=== PATIENT | male | born 1965 | race Caucasian/White ===

== ENCOUNTER 2021-09-07 06:41 | Emergency (ER) | payer MEDICAID, SELFPAY ==
--- NOTE | ~2021-09-07 | XR_ITS ---
EXAMINATION: XR CHEST CLINICAL INFORMATION: Back pain COMPARISON: None TECHNIQUE: 2 views of the chest were obtained. FINDINGS: The lungs are inflated but clear of acute pneumonic process. The heart size and pulmonary vascularity is normal. No gross bony abnormality seen. XR/XR chest 2V IMPRESSION: Hyperinflated lungs without acute process.
--- NOTE | ~2021-09-07 | CT_ITS ---
EXAMINATION: CT CHEST WITHOUT CONTRAST CLINICAL INFORMATION: Chest wall pain COMPARISON: Previous chest x-ray from earlier the same day TECHNIQUE: Multidetector volumetric CT imaging of the chest was done. Axial MIP volume rendering provided. Sagittal and coronal reformatted images were obtained. This CT examination was performed using dose optimization techniques as appropriate, variously including the following: *Automated exposure control *Adjustment of mA and/or kV according to patient size (this includes techniques or standardized protocols for targeted exams where dose is matched to indication/reason for exam; i.e. 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 MEDIASTINUM: The heart does not appear enlarged. The thoracic aorta is upper normal in size. There is mild aortic valve calcification. The mediastinum is otherwise normal. PLEURA: There is no pleural effusion. No pleural mass or thickening. AXILLA: No lymphadenopathy. No chest wall mass is seen. UPPER ABDOMEN: There are small right renal stones. OSSEOUS STRUCTURES: There are degenerative changes of the spine. No fracture or bone lesion is seen. CT/CT chest wo con IMPRESSION: Upper normal-size thoracic aorta. Right renal stones. Degenerative changes of the thoracic spine. Fleischner guidelines were followed.
[2021-09-07 06:43] VITALS: BP 114/93; PULSE 88; RESP 20; TEMP 36.4; O2SAT 100; BMI 25.6
--- NOTE | 2021-09-07 07:33 | ECG_ITS ---
Test Reason : rib pain Blood Pressure : / mmHG Vent. Rate : 076 BPM Atrial Rate : 076 BPM P-R Int : 188 ms QRS Dur : 090 ms QT Int : 356 ms P-R-T Axes : 059 052 067 degrees QTc Int : 400 ms Normal sinus rhythm Normal ECG When compared with ECG of 06-DEC-2003 14:59, No significant change was found Referred By: Mookie Osuna Electronically Signed By:SADA BISHOP
--- NOTE | 2021-09-07 07:45 | ED_ITS ---
HPI - General Adult General Chief complaint: Back Pain/Injury Stated complaint: back pain Time Seen by Provider: 09/07/21 07:20 Source: patient Mode of arrival: ambulatory Limitations: no limitations History of Present Illness HPI narrative: This is a 55 years old patient presented to the emergency department with a chief complaint of left upper back pain pleuritic in nature, patient states that he was seen at the urgent care L chest x-ray showed a calcification Onset (ago): month(s) (2) Location: chest Radiation: non-radiation Severity: moderate Pain Consistency: constant Relieving factors: none Exacerbating factors: none Related Data Previous Rx's Medication Instructions Recorded oxycodone 5 mg tablet 5 mg PO BID PRN #12 tab 09/07/21 Allergies Allergy/AdvReac Type Severity Reaction Status Date / Time No Known Allergies Allergy Unverified 09/07/21 06:47 Review of Systems Constitutional: Constitutional: Reports no additional constitutional complaints Eyes: Eyes: Reports no additional eye complaints ENT: Reports system reviewed and no additional complaints, except as documented Cardiovascular: Cardiovascular: Reports no additional cardiovascular complaints Neurologic: Reports system reviewed and no additional complaints, except as documented PMFSH Past Medical History Attestation statement: The following information was validated with the patient. Medical History No known health problems Physical Exam Vital Signs: Vital Signs: Last Vital Signs Temp 97.5 F 09/07/21 06:43 Pulse 88 09/07/21 06:43 Resp 20 09/07/21 06:43 BP 114/93 H 09/07/21 06:43 Pulse Ox 100 09/07/21 06:43 BMI result Body Mass Index 25.6 His vital signs are stable he looks not toxic his O2 sat is 100% Const: General: cooperative, comfortable and no acute distress Nutritional Appearance: average body habitus and well nourished Orientation/consciou sness: patient oriented x3 HENMT: Head: Yes normal to inspection, Yes No palpable skull fracture present and Yes normocephalic Ears: hearing grossly normal bilaterally General nose exam: Normal external nose present Mouth: Normal oral and palatal mucosa present Neck: Neck: Yes normal visual inspection and Yes full ROM Lymphatic: no lymphadenopathy noted Chest: Chest palpation & inspection: normal inspection of the chest Resp: Effort & Inspection: normal respiratory effort and able to speak in complete sentences Auscultation: clear to auscultation bilaterally Percussion: percussion normal Cardio: Jugular venous distension: no JVD Rate: regular rate Rhythm: regular rhythm GI: Inspection: Yes normal to inspection Palpation (GI): Soft to palpation, not firm and nontender Auscultation: normal bowel sounds Skin: General skin exam: no rashes or lesions noted Lesions: no lesions Rashes: no rashes Neuro: General: patient oriented x3 Course Reevaluation(s) Reevaluation #1: Workup negative is chest x-ray is normal, labs and normal, D-dimer is negative. I explained to the patient at the the workup is negative the patient is not satisfied. He is requesting a CT scan he states that he was supposed of get a CT scan of the by the primary care physician , he became very upset because I did not order a CT scan,he was told that he has a calcification that may be cancer. Reevaluation #2: CT CHEST NO LUNG DISEASE,THORACIC AORTA UPPER LIMIT,BUT I DO NOT THINK HE HAS DISSECTION PAIN ONGOING 2 MONTHS AT LEAST,D-DIMER NEGATIVE ,BP OK Medical Decision Making Lab Data Result diagrams: 09/07/21 07:50 09/07/21 07:50 Labs: Lab Results 09/07/21 09/07/21 09/07/21 Range/Units 07:50 07:50 07:50 WBC 6.2 (4.8-10.8) X10*3/uL RBC 5.17 (4.60-5.80) X10*6/uL Hgb 15.9 (14.0-18.0) g/dl Hct 47.1 (42.0-52.0) % MCV 91.1 (80.0-98.0) fL MCH 30.8 (27.0-33.0) pg MCHC 33.8 (31.0-36.0) g/dl RDW 12.3 (11.0-16.0) % Plt Count 344 (160-400) X10*3/uL MPV 8.5 L (9.4-12.4) fL Immature Gran % (Auto) 0.3 (0.0-0.4) % Neut % (Auto) 63.3 (45-73) % Lymph % (Auto) 22.2 (20-40) % [place] % (Auto) 10.4 (2-11) % Eos % (Auto) 3.2 (0-4) % Baso % (Auto) 0.6 (0-2) % Lymph # (Auto) 1.4 (1.2-4.9) X10*3/uL [place] # (Auto) 0.6 (0.1-1.2) X10*3/uL Eos # (Auto) 0.2 (0.0-0.4) X10*3/uL Baso # (Auto) 0.0 (0.0-0.2) X10*3/uL Abs Immat Gran (auto) 0.02 (0.00-0.03) X10*3/uL Absolute Neuts (auto) 3.9 (2.0-8.3) x10*3/uL Absolute Nucleated RBC 0.000 (0.0-0.012) X10*3/uL Nucleated RBC % (auto) 0.0 (0.0-0.2) /100WBC D-Dimer High Sensitivty < 150 NG/ML Sodium 138 (135-145) mmol/L Potassium 5.0 (3.3-5.1) mmol/L Chloride 105 (96-108) mmol/L Carbon Dioxide 28 (22-29) mmol/L Anion Gap 10 L (12-20) BUN 13 (9-16) mg/dL Creatinine 1.11 (0.5-1.4) mg/dL Estim Creat Clear Calc 87.7 Estimated GFR > 60 Random Glucose 112 (60-115) mg/dL Calcium 9.6 (8.4-10.2) mg/dL Troponin I High Sens (<3.5-35.0) ng/L 09/07/21 Range/Units 07:50 WBC (4.8-10.8) X10*3/uL RBC (4.60-5.80) X10*6/uL Hgb (14.0-18.0) g/dl Hct (42.0-52.0) % MCV (80.0-98.0) fL MCH (27.0-33.0) pg MCHC (31.0-36.0) g/dl RDW (11.0-16.0) % Plt Count (160-400) X10*3/uL MPV (9.4-12.4) fL Immature Gran % (Auto) (0.0-0.4) % Neut % (Auto) (45-73) % Lymph % (Auto) (20-40) % [place] % (Auto) (2-11) % Eos % (Auto) (0-4) % Baso % (Auto) (0-2) % Lymph # (Auto) (1.2-4.9) X10*3/uL [place] # (Auto) (0.1-1.2) X10*3/uL Eos # (Auto) (0.0-0.4) X10*3/uL Baso # (Auto) (0.0-0.2) X10*3/uL Abs Immat Gran (auto) (0.00-0.03) X10*3/uL Absolute Neuts (auto) (2.0-8.3) x10*3/uL Absolute Nucleated RBC (0.0-0.012) X10*3/uL Nucleated RBC % (auto) (0.0-0.2) /100WBC D-Dimer High Sensitivty NG/ML Sodium (135-145) mmol/L Potassium (3.3-5.1) mmol/L Chloride (96-108) mmol/L Carbon Dioxide (22-29) mmol/L Anion Gap (12-20) BUN (9-16) mg/dL Creatinine (0.5-1.4) mg/dL Estim Creat Clear Calc Estimated GFR Random Glucose (60-115) mg/dL Calcium (8.4-10.2) mg/dL Troponin I High Sens < 3.5 (<3.5-35.0) ng/L Imaging Data Chest x-ray: Radiologist's impression: EXAMINATION: XR CHEST CLINICAL INFORMATION: Back pain COMPARISON: None TECHNIQUE: 2 views of the chest were obtained. FINDINGS: The lungs are inflated but clear of acute pneumonic process. The heart size and pulmonary vascularity is normal. No gross bony abnormality seen. XR/XR chest 2V IMPRESSION: Hyperinflated lungs without acute process. 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 ? MEDIASTINUM: The heart does not appear enlarged. The thoracic aorta is upper normal in size. There is mild aortic valve calcification. The mediastinum is otherwise normal.? PLEURA: There is no pleural effusion. No pleural mass or thickening.? AXILLA: No lymphadenopathy. No chest wall mass is seen. UPPER ABDOMEN: There are small right renal stones. OSSEOUS STRUCTURES: There are degenerative changes of the spine. No fracture or bone lesion is seen. CT/CT chest wo con IMPRESSION: Upper normal-size thoracic aorta. Right renal stones. Degenerative changes of the thoracic spine. ? Fleischner guidelines were followed. Dictated By: ECG Data Prior ECG tracings: available for review Interpretation: NSR 76 no ischemic changes Discharge Plan Discharge Clinical Impression: Back pain Patient Disposition: Home, Self-Care Instructions: Back Pain (ED) Additional Instructions: Please follow-up with primary care physician, Your CT scan shows no lung disease, thoracic aorta is upper limit normal,make sure you follow up with Primary care doctor and regional liaison Dr Ritter Prescriptions: New oxycodone 5 mg tablet 5 mg PO BID PRN (Reason: pain) Qty: 12 RF: 0 Referrals: Aravind Ritter MD [Physician] - 2 days Stand Alone Forms: Work/School Release Discharge Date/Time: 09/07/21 11:05
[2021-09-07 07:55] LABS: MANUAL DIFF FLAG NO
[2021-09-07 07:56] LABS: Basophils Percent Auto 0.6 % (0-2); Eosinophils Absolute Auto 0.2 X10*3/uL (0.0-0.4); Eosinophils Percent Auto 3.2 % (0-4); Hematocrit 47.1 % (42.0-52.0); Hemoglobin 15.9 g/dl (14.0-18.0); Imm Gran Abs Auto 0.02 X10*3/uL (0.00-0.03); Imm Gran Pct Auto 0.3 % (0.0-0.4); Lymphocytes Absolute Auto 1.4 X10*3/uL (1.2-4.9); Lymphocytes Percent Auto 22.2 % (20-40); Mean Corpuscular HGB Conc 33.8 g/dl (31.0-36.0); Mean Corpuscular Hemoglobin 30.8 pg (27.0-33.0); Mean Corpuscular Volume 91.1 fL (80.0-98.0); Mean Platelet Volume 8.5 fL (9.4-12.4); Monocytes Absolute Auto 0.6 X10*3/uL (0.1-1.2); Monocytes Percent Auto 10.4 % (2-11); Neutrophils Absolute Auto 3.9 x10*3/uL (2.0-8.3); Neutrophils Percent Auto 63.3 % (45-73); Platelet Count 344 X10*3/uL (160-400); Red Blood Count 5.17 X10*6/uL (4.60-5.80); Red Cell Distribution Width 12.3 % (11.0-16.0); White Blood Count 6.2 X10*3/uL (4.8-10.8)
[2021-09-07 08:06] LABS: D Dimer High Sensitivity < 150 NG/ML
[2021-09-07 08:09] LABS: Anion Gap 10 (12-20); Blood Urea Nitrogen 13 mg/dL (9-16); Calcium 9.6 mg/dL (8.4-10.2); Carbon Dioxide 28 mmol/L (22-29); Chloride 105 mmol/L (96-108); Creatinine Clr Calc Pharmacy 87.7; Estimated Glomerular Filt Rate > 60; Glucose Random 112 mg/dL (60-115); Sodium 138 mmol/L (135-145)
[2021-09-07 08:15] LABS: Troponin-I High Sensitivity < 3.5 ng/L (<3.5-35.0)
== END 2021-09-07 11:05 | disposition home or self-care (01) ==
PROVIDERS: Emergency Provider Emergency Medicine; PCP Nurse Practitioner Family
DX: M54.6 Pain in thoracic spine (principal)
CPT/HCPCS: 36415; 71046; 71250; 80048; 84484; 85025; 85379; 93005; 99282; 99284

== ENCOUNTER → 2021-09-10 14:21 | Outpatient (BNVA) | payer MEDICAID, SELFPAY | PROVIDERS: PCP Nurse Practitioner Family; Visit Provider Internal Medicine | DX: I35.9 Nonrheumatic aortic valve disorder, unspecified (principal); I77.89 Other specified disorders of arteries and arterioles | CPT/HCPCS: 93005; 99202 ==

== ENCOUNTER → 2021-11-05 07:39 | Outpatient (REF) | payer MEDICAID, SELFPAY ==
--- NOTE | 2021-11-05 07:42 | CA_ITS ---
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 Study Quality: Fair ECG Rhythm: Sinus Conclusions: - 1. Normal LV systolic function with impaired relaxation filling pattern 2. Trivial aortic regurgitation 3. Ascending aorta was not visualized is completely 4. Normal RV systolic pressure 5. No pericardial effusion Findings Left Ventricle Normal left ventricular size, thickness, and systolic function. The visually estimated ejection fraction is between 55-60%. Spectral Doppler is indicative of an impaired relaxation filling pattern. E/E prime ratio is between 8 and 15 consistent with indeterminate filling pressures. Right Ventricle Normal right ventricular cavity size and systolic function. Atria The left atrium is likely dilated. Interatrial shunt cannot be excluded. The right atrium is normal in size. Aortic Valve There is mild calcification of the aortic valve. There is no aortic valve stenosis. There is trace (trivial) aortic valve regurgitation. Mitral Valve Normal mitral valve structure and function. There is trace mitral valve regurgitation. There is no mitral valve stenosis. Pulmonic Valve The pulmonic valve was not well visualized. Tricuspid Valve Normal tricuspid valve structure. There is trace tricuspid valve regurgitation. The right ventricular systolic pressure is normal. The right ventricular systolic pressure is 15 mmHg. Normal right atrial pressure. There is no evidence of pulmonary hypertension. Great Vessels The aorta was not well visualized. The pulmonary artery was not well visualized. Venous The inferior vena cava is normal in size and collapses greater than 50% with inspiration. Pericardium/Pleural There is no evidence of pericardial effusion. Prior Study Comparison No prior study available for comparison. Measurements 2D Linear Measurements IVSd: 1.12 0.6-0.9/0.6-1.0 cm LVIDd: 4.62 3.9-5.3/4.2-5.9 cm LVIDd Index: 2.04 2.4-3.2/2.2-3.1 cm/m2 LVIDs: 3.25 2.0-3.6 cm LVPWd: 1.17 0.7-1.1 cm LA Diam: 4.30 2.7-3.8/3.0-4.0 cm LAIDs Index: 1.90 1.5-2.3 cm/m2 LV Mass: 271.25 67-162/88-224 g LV Mass Index: 120.02 43-95/49-115 g/m2 LVOT Diam: 2.20 3.0+(-)1.3 cm 2D Systolic Function EF 4C: 55.80 >55% EF 2C: 54.60 >55% EF BiP: 56.80 >55% Mitral Valve MV Pk E: 0.77 MV PK A: 0.94 MV Decel Time: 238.00 E/A: 0.80 E'Lateral: 10.20 E'Medial: 7.07 E/E' Med: 10.80 E/E' Lat: 7.50 PHT: 70.00 MVA PHT: 3.14 Decel Cloud: 3.22 Aortic Valve AoV Pk Manoj: 1.57 AoV Mn Manoj: 1.12 AoV VTI: 0.36 AoV Pk Grad: 10.00 Aov Mn Grad: 6.00 GIULIANA Cont.VTI: 2.88 AI Pk Manoj: 4.47 AI Cloud: 2.83 LVOT LVOT Pk Manoj: 1.32 LVOT Mn Manoj: 0.93 LVOT VTI: 0.27 LVOT Pk Grad: 7.00 LVOT Mn Grad: 4.00 LVOT Diam: 2.20 LVOT Area: 3.80 Diastolic Function MV Pk E: 0.77 MV Pk A: 0.94 E/A: 0.80 E'Medial: 7.07 E/E' Med: 10.80 E' Laterial: 10.20 E/E' Lat: 7.50 Right Ventricle TAPSE (mm): 24.40 TVS' Manoj: 15.90 Tricuspid Valve TR Pk Manoj: 1.75 TR Pk Grad: 12.00 RA Press: 3.00 RVSP: 15.00 Great Vessels Aorta Sinus of Valsalva: 3.85 2.0-3.[address] [place]: 2.86 1.7-3.4 cm Ao Asc: 3.70 2.1-3.4 cm Ao Arch: 3.30 Updated in Other Vendor System with Status of Final Sam Wilkinson MD electronically signed on 11/05/2021 11:35:29 AM with status of Final
== END ==
LOC: HO.CARD 07:39
PROVIDERS: Visit Provider Internal Medicine
DX: I77.89 Other specified disorders of arteries and arterioles (principal)
CPT/HCPCS: 93306

== ENCOUNTER → 2021-11-11 15:11 | Outpatient (BNVA) | payer MEDICAID, SELFPAY | PROVIDERS: PCP Nurse Practitioner Family; Visit Provider Internal Medicine | DX: I77.89 Other specified disorders of arteries and arterioles (principal); Z79.899 Other long term (current) drug therapy ==

== ENCOUNTER 2021-11-22 16:02 | Emergency (ER) | payer MEDICAID, SELFPAY ==
--- NOTE | ~2021-11-22 | CT_ITS ---
EXAMINATION: CT ABDOMEN AND PELVIS WITHOUT CONTRAST CLINICAL INFORMATION: Right flank pain. Question stone. COMPARISON: Previous CT of the abdomen and pelvis October 2018 TECHNIQUE: Multidetector volumetric imaging was performed from the superior aspect of the liver through the pubic symphysis. Sagittal and coronal reformatted images were obtained on the technologist's workstation. This CT examination was performed using dose optimization techniques as appropriate, variously including the following: *Automated exposure control *Adjustment of mA and/or kV according to patient size (this includes techniques or standardized protocols for targeted exams where dose is matched to indication/reason for exam; i.e. extremities or head) *Use of iterative reconstruction technique DLP: 700 mGy-cm FINDINGS: LUNG BASES: The visualized lung bases are unremarkable. LIVER, GALLBLADDER, AND BILIARY TREE: The liver is normal in size, shape, and attenuation. No focal hepatic lesion or biliary ductal dilatation is present. The gallbladder is unremarkable with no evidence of radiopaque gallstones, gallbladder wall thickening, or obvious pericholecystic inflammatory changes. PANCREAS: Unremarkable. SPLEEN: Unremarkable. ADRENAL GLANDS: Unremarkable. KIDNEYS AND URETERS: The 2 mm stone in the upper pole of the right kidney. There is mild right hydronephrosis from a 2 mm right proximal ureteral stone. There is a suspicion of a tiny 1 mm left lower pole renal stone. There is a 3 mm left proximal ureteral or UPJ stone. There is no left hydronephrosis. There is a left lower pole peripelvic cyst. BLADDER: Unremarkable. GASTROINTESTINAL TRACT: There is diverticulosis of the colon. No evidence of diverticulitis is seen. Small and large bowel is otherwise unremarkable. The appendix is not seen. ABDOMINAL WALL: No significant hernia is appreciated. LYMPH NODES: Normal. VASCULAR: Unremarkable. PELVIC VISCERA: Unremarkable. OSSEOUS STRUCTURES: There are degenerative changes of the spine. CT/CT abdomen pelvis wo con IMPRESSION: Small right renal stone. Mild right hydronephrosis from a 2 mm right mid ureteral stone. 3 mm left proximal ureteral or UVJ stone. No left hydronephrosis. Left lower pole peripelvic cyst and question tiny 1 mm stone. Diverticulosis. Fleischner guidelines were followed.
[2021-11-22 16:27] VITALS: BP 146/89; PULSE 64; RESP 20; TEMP 36.6; O2SAT 99; BMI 26.9
[2021-11-22] MEDS: Ondansetron ODT 4 MG TAB.RAPDIS TRANSLINGU (16:30)
--- NOTE | 2021-11-22 16:47 | ED.ABDPAIN ---
HPI - Abdominal Pain General Chief Complaint: Abdominal Pain Stated Complaint: severe lower back pain Time Seen by Provider: 11/22/21 16:46 Source: patient Mode of arrival: ambulatory Limitations: no limitations History of Present Illness HPI narrative: Patient's history of kidney stones status post lithotripsy few months ago comes in for pain in right flank area started just PTAl sharp radiating to right lower quadrant associated with nausea. Patient feels pain similar to his previous renal colic in the past Related Data Home Medications Medication Instructions Recorded Confirmed cyclobenzaprine 10 mg tablet 10 mg PO BID PRN 09/10/21 11/11/21 trazodone 50 mg tablet 0 mg PO 09/10/21 11/11/21 Previous Rx's Medication Instructions Recorded ondansetron 4 mg disintegrating 4 mg PO Q6-8H PRN #7 tab 11/22/21 tablet oxycodone 5 mg tablet 5 mg PO Q6H PRN #20 tab 11/22/21 Allergies Allergy/AdvReac Type Severity Reaction Status Date / Time No Known Allergies Allergy Verified 11/11/21 15:14 Review of Systems Review of Systems Yes all other systems are reviewed and are negative [facility] Past Medical History Medical History No known health problems Surgical History No pertinent past surgical history Family History Family History Father No problems noted. Mother No problems noted. Social History Social History Patient Tobacco Use Status: Never used Tobacco Use of substances other than those prescribed or required for medical reasons: No Substance Use Type: Marijuana Advance Directives: No Advance Directives Information Provided: No Physical Exam ED Vital Signs: Vital Signs - 24 hr 11/22/21 16:27 11/22/21 16:50 11/22/21 16:51 Temperature 98 F Pulse Rate 64 62 61 Respiratory Rate 20 20 20 Blood Pressure 146/89 H 145/89 H 140/89 H Pulse Oximetry 99 99 99 11/22/21 18:35 11/22/21 19:39 Temperature 97.8 F Pulse Rate 64 66 Respiratory Rate 18 20 Blood Pressure 138/87 129/84 Pulse Oximetry 98 BMI result Body Mass Index 26.9 Appearance: Alert. Oriented X3. In moderate distress. Eyes: No pallor or icterus ENT: Pharynx normal. Oral Mucosa moist Neck: Normal inspection. Neck supple. CVS: Normal heart rate and rhythm. Pulses normal. Respiratory: No respiratory distress. Equal air entry bilateral, no wheezing/rales/rhonchi Abdomen: Soft and nontender. Bowel sounds are present, no mass palpable, right CVA tenderness++ Skin: Skin warm and dry. Normal skin color. Normal skin turgor. Extremities: No lower extremity edema. No calf tenderness Neuro: Oriented X 3. MDM - Abdominal Pain MDM Narrative Medical decision making narrative: Patient with right proximal ureteric stone with mild hydronephrosis felt better after IV hydration and pain medication discharge patient home advised follow-up urologist Lab Data Attestation: I reviewed the patient's lab results. Result diagrams: 11/22/21 16:47 11/22/21 16:47 Labs: Lab Results 11/22/21 11/22/21 11/22/21 Range/Units 16:47 16:47 18:38 WBC 8.0 (4.8-10.8) X10*3/uL RBC 4.69 (4.60-5.80) X10*6/uL Hgb 14.2 (14.0-18.0) g/dl Hct 42.4 (42.0-52.0) % MCV 90.4 (80.0-98.0) fL MCH 30.3 (27.0-33.0) pg MCHC 33.5 (31.0-36.0) g/dl RDW 12.9 (11.0-16.0) % Plt Count 367 (160-400) X10*3/uL MPV 8.4 L (9.4-12.4) fL Immature Gran % (Auto) 0.2 (0.0-0.4) % Neut % (Auto) 56.8 (45-73) % Lymph % (Auto) 28.9 (20-40) % [place] % (Auto) 10.3 (2-11) % Eos % (Auto) 3.2 (0-4) % Baso % (Auto) 0.6 (0-2) % Lymph # (Auto) 2.3 (1.2-4.9) X10*3/uL [place] # (Auto) 0.8 (0.1-1.2) X10*3/uL Eos # (Auto) 0.3 (0.0-0.4) X10*3/uL Baso # (Auto) 0.1 (0.0-0.2) X10*3/uL Abs Immat Gran (auto) 0.02 (0.00-0.03) X10*3/uL Absolute Neuts (auto) 4.6 (2.0-8.3) x10*3/uL Absolute Nucleated RBC 0.000 (0.0-0.012) X10*3/uL Nucleated RBC % (auto) 0.0 (0.0-0.2) /100WBC Sodium 139 (135-145) mmol/L Potassium 4.3 (3.3-5.1) mmol/L Chloride 106 (96-108) mmol/L Carbon Dioxide 24 (22-29) mmol/L Anion Gap 13 (12-20) BUN 20 H D (9-16) mg/dL Creatinine 1.13 (0.5-1.4) mg/dL Estim Creat Clear Calc 85.1 Estimated GFR > 60 Random Glucose 127 H (60-115) mg/dL Calcium 9.4 (8.4-10.2) mg/dL Total Bilirubin 0.4 (0.0-1.0) mg/dL Direct Bilirubin 0.2 (0.0-0.5) mg/dL AST 17 (5-37) U/L ALT 20 (0-40) U/L Alkaline Phosphatase 53 (39-117) U/L Total Protein 6.9 (6.5-8.0) g/dL Albumin 4.4 (3.5-5.0) g/dL Lipase 42 (8-78) U/L Urine Color OTHER A Urine Appearance CLOUDY Urine pH 5.5 (5.0-8.0) Ur Specific Qulin >= 1.030 H (1.005-1.025) Urine Protein 2+ H (NEG-TRACE) MG/DL Urine Glucose (UA) NEG (NEG) MG/DL Urine Ketones NEG (NEG) MG/DL Urine Blood 3+ H (NEG) Urine Nitrite NEG (NEG) Ur Leukocyte Esterase NEG (NEG) Urine RBC TNTC H (0) /HPF Urine WBC 1-4 (0-4) /HPF Ur Squamous Epith Cells TRACE /LPF Urine Bacteria TRACE /LPF Urine Mucus 1+ /LPF Discharge Plan Discharge Clinical Impression: Calculus of proximal right ureter Patient Disposition: Home, Self-Care Instructions: Ureteral Stones (ED) Additional Instructions: Drink plenty of fluids Pain medication as advised Follow up with urologist Take Flomax daily till stone is passed Prescriptions: New ondansetron 4 mg tablet,disintegrating 4 mg PO Q6-8H PRN (Reason: nausea and vomiting) Qty: 7 0RF oxycodone 5 mg tablet 5 mg PO Q6H PRN (Reason: Pain, Moderate) Qty: 20 0RF No Action trazodone 50 mg tablet 0 mg PO 0RF cyclobenzaprine 10 mg tablet 10 mg PO BID PRN0RF Referrals: Adrian Begum MD [Physician] - 1 week Interventions: ED Discharge Assessment Last Done: 11/22/21 20:40 Discharge Date/Time: 11/22/21 20:41
[2021-11-22 16:50] VITALS: BP 145/89; PULSE 62; RESP 20; O2SAT 99
[2021-11-22 16:51] VITALS: BP 140/89; PULSE 61; RESP 20; O2SAT 99
[2021-11-22 16:55] LABS: MANUAL DIFF FLAG NO
[2021-11-22 16:56] LABS: Basophils Absolute Auto 0.1 X10*3/uL (0.0-0.2); Basophils Percent Auto 0.6 % (0-2); Eosinophils Absolute Auto 0.3 X10*3/uL (0.0-0.4); Eosinophils Percent Auto 3.2 % (0-4); Hematocrit 42.4 % (42.0-52.0); Hemoglobin 14.2 g/dl (14.0-18.0); Imm Gran Abs Auto 0.02 X10*3/uL (0.00-0.03); Imm Gran Pct Auto 0.2 % (0.0-0.4); Lymphocytes Absolute Auto 2.3 X10*3/uL (1.2-4.9); Lymphocytes Percent Auto 28.9 % (20-40); Mean Corpuscular HGB Conc 33.5 g/dl (31.0-36.0); Mean Corpuscular Hemoglobin 30.3 pg (27.0-33.0); Mean Corpuscular Volume 90.4 fL (80.0-98.0); Mean Platelet Volume 8.4 fL (9.4-12.4); Monocytes Absolute Auto 0.8 X10*3/uL (0.1-1.2); Monocytes Percent Auto 10.3 % (2-11); Neutrophils Absolute Auto 4.6 x10*3/uL (2.0-8.3); Neutrophils Percent Auto 56.8 % (45-73); Platelet Count 367 X10*3/uL (160-400); Red Blood Count 4.69 X10*6/uL (4.60-5.80); Red Cell Distribution Width 12.9 % (11.0-16.0)
[2021-11-22] MEDS: Morphine Sulfate 4 MG/ML CARTRIDGE IVPUSH ×2 (16:58→19:38)
[2021-11-22] MEDS: 0.9 % Sodium Chloride 1,000 ML 999 ML IV ×2 (16:59→19:38)
[2021-11-22] MEDS: Ketorolac Tromethamine 30 MG/ML VIAL IVPUSH (17:00)
[2021-11-22 17:10] LABS: Alanine Aminotransferase 20 U/L (0-40); Albumin Level 4.4 g/dL (3.5-5.0); Alkaline Phosphatase 53 U/L (39-117); Anion Gap 13 (12-20); Aspartate Amino Transferase 17 U/L (5-37); Bilirubin Direct 0.2 mg/dL (0.0-0.5); Bilirubin Total 0.4 mg/dL (0.0-1.0); Blood Urea Nitrogen 20 mg/dL (9-16); Calcium 9.4 mg/dL (8.4-10.2); Carbon Dioxide 24 mmol/L (22-29); Chloride 106 mmol/L (96-108); Creatinine Clr Calc Pharmacy 85.1; Estimated Glomerular Filt Rate > 60; Glucose Random 127 mg/dL (60-115); Lipase 42 U/L (8-78); Potassium 4.3 mmol/L (3.3-5.1); Sodium 139 mmol/L (135-145); Total Protein 6.9 g/dL (6.5-8.0)
[2021-11-22 18:35] VITALS: BP 138/87; PULSE 64; RESP 18; TEMP 36.6; O2SAT 98
[2021-11-22 18:46] LABS: Appearance Urine CLOUDY; Glucose Urine UA NEG (NEG); Leukocyte Esterase Urine NEG (NEG); Nitrite Urine NEG (NEG); PH 5.5 (5.0-8.0); Specific Gravity - Urine >= 1.030 (1.005-1.025); UACC Culture Trigger NO; Urine Blood 3+ (NEG); Urine Ketones NEG (NEG); Urine Protein 2+ MG/DL (NEG-TRACE)
[2021-11-22 18:47] LABS: Color Urine OTHER
[2021-11-22 18:57] LABS: Bacteria Urine TRACE /LPF; Mucus Urine 1+ /LPF; RBC Urine TNTC /HPF (0); Squamous Epithelial Cell Urine TRACE /LPF
[2021-11-22] MEDS: Tamsulosin HCL 0.4 MG CAPSULE PO (19:38)
[2021-11-22 19:39] VITALS: BP 129/84; PULSE 66; RESP 20
== END 2021-11-22 20:41 | disposition home or self-care (01) ==
PROVIDERS: Emergency Provider Internal Medicine
DX: N20.1 Calculus of ureter (principal); M54.50 Low back pain, unspecified; R10.9 Unspecified abdominal pain; Z79.899 Other long term (current) drug therapy
CPT/HCPCS: 36415; 74176; 80048; 80076; 81001; 83690; 85025; 96360; 96361; 99284; J1885; J2270

== ENCOUNTER 2024-01-11 10:14 | Emergency (ER) | payer OTHER, SELFPAY ==
[2024-01-11 10:47] VITALS: BP 135/96; PULSE 94; RESP 16; TEMP 36.6; BMI 25.6
[2024-01-11 11:05] LABS: Basophils Percent Auto 0.5 % (0-2); Eosinophils Absolute Auto 0.1 X10*3/uL (0.0-0.4); Eosinophils Percent Auto 1.2 % (0-4); Hematocrit 44.9 % (42.0-52.0); Imm Gran Abs Auto 0.03 X10*3/uL (0.00-0.03); Imm Gran Pct Auto 0.4 % (0.0-0.4); Lymphocytes Absolute Auto 1.6 X10*3/uL (1.2-4.9); Lymphocytes Percent Auto 19.7 % (20-40); MANUAL DIFF FLAG NO; Mean Corpuscular HGB Conc 33.4 g/dl (31.0-36.0); Mean Corpuscular Hemoglobin 30.5 pg (27.0-33.0); Mean Corpuscular Volume 91.3 fL (80.0-98.0); Mean Platelet Volume 8.3 fL (9.4-12.4); Monocytes Absolute Auto 0.9 X10*3/uL (0.1-1.2); Monocytes Percent Auto 10.3 % (2-11); Neutrophils Absolute Auto 5.6 x10*3/uL (2.0-8.3); Neutrophils Percent Auto 67.9 % (45-73); Platelet Count 379 X10*3/uL (160-400); Red Blood Count 4.92 X10*6/uL (4.60-5.80); Red Cell Distribution Width 12.6 % (11.0-16.0); White Blood Count 8.3 X10*3/uL (4.8-10.8)
[2024-01-11 11:06] LABS: Appearance Urine Clear; Color Urine Yellow; Glucose Urine UA Negative (Negative); Leukocyte Esterase Urine Negative (Negative); Nitrite Urine Negative (Negative); PH 5.5 (5.0-9.0); Specific Gravity - Urine 1.025 (1.005-1.025); UMIC TRIGGER UACC YES; Urine Blood Small (1+) (Negative); Urine Ketones Trace mg/dL (Negative); Urine Protein Negative (Neg-Trace)
[2024-01-11 11:17] LABS: Bacteria Urine None Seen (None Seen); Hyaline Casts Urine 0-2 /LPF (0-2); RBC Urine 0-2 /HPF (0-2); Squamous Epithelial Cell Urine 0-2 /HPF (0-2); WBC Urine 0-5 /HPF (0-5)
[2024-01-11 11:18] LABS: Anion Gap 15 (12-20); Blood Urea Nitrogen 30 mg/dL (9-16); Calcium 10.5 mg/dL (8.4-10.2); Carbon Dioxide 25 mmol/L (22-29); Chloride 102 mmol/L (96-108); Creatinine Clr Calc Pharmacy 71.1; Estimated Glomerular Filt Rate 55; Glucose Random 104 mg/dL (60-115); Potassium 4.4 mmol/L (3.3-5.1); Sodium 138 mmol/L (135-145)
[2024-01-11 17:41] VITALS: BP 138/88; PULSE 99; RESP 18; TEMP 36.8; O2SAT 100
== END 2024-01-11 19:06 | disposition left against medical advice (07) ==
PROVIDERS: Emergency Provider Emergency Medicine; PCP Nurse Practitioner Family
DX: R10.9 Unspecified abdominal pain (principal)
CPT/HCPCS: 36415; 80048; 81001; 85025; 99282; 99283

== ENCOUNTER 2024-08-12 09:30 | Emergency (ER) | payer OTHER, SELFPAY ==
--- NOTE | ~2024-08-12 | CT_ITS ---
EXAMINATION: CT MAXILLOFACIAL WITH CONTRAST CLINICAL INFORMATION: Right-sided facial swelling/pain. COMPARISON: None available. TECHNIQUE: Multidetector helical imaging of the maxillofacial bones was performed in the axial plane following the administration of 85 mL of Omnipaque 350 intravenous contrast. Generation of coronal and sagittal reformatted images. This CT examination was performed using dose optimization techniques as appropriate, variously including the following: *Automated exposure control *Adjustment of mA and/or kV according to patient size (this includes techniques or standardized protocols for targeted exams where dose is matched to indication/reason for exam; i.e. extremities or head) *Use of iterative reconstruction technique DLP: 394 mGy-cm FINDINGS: FRONTAL SINUSES AND DRAINAGE PATHWAYS: The frontal sinuses are clear. The frontoethmoidal recesses are patent. MAXILLARY SINUSES AND DRAINAGE PATHWAYS: Mild mucosal thickening of the maxillary sinuses. The maxillary ostia and infundibula are patent. ETHMOID SINUSES: Mild mucosal thickening of the ethmoid air cells. The ethmoid roofs appear symmetric and intact. SPHENOID SINUS AND DRAINAGE PATHWAYS: Minimal mucosal thickening of the sphenoid sinus. The sphenoethmoidal recesses are patent. The carotid canals are normally covered by bone. NASAL PASSAGE: The nasal passages are clear. Dehiscence of the nasal septum. ORBITS: Chronic appearing depression of the left lamina papyracea. Otherwise, normal appearance of the osseous orbits. The lamina papyracea are intact. No significant preseptal or retrobulbar edema. Normal appearance of the globes. Normal symmetric appearance of the extraocular musculature. No abnormalities of the intraconal or extraconal adipose tissue. Normal appearance of the optic nerve sheaths. Normal appearance of the lacrimal glands. No orbital fluid collections. No abnormalities of the orbital apices. TEMPOROMANDIBULAR JOINTS: The temporomandibular joints remain well aligned. Normal appearance of the temporomandibular joints. ADDITIONAL RELEVANT FINDINGS: No evidence of maxillofacial bone fractures. The zygomatic arches remain intact. No nasal bone fracture. No evidence of mandibular or maxillary fracture. No significant maxillary/mandibular periapical disease. The visualized mastoid air cells and middle ear cavities remain well aerated. Limited evaluation of the intracranial structures without significant abnormalities. Persistent socket of the mandibular right 3rd molar. Moderate edema within the soft tissues of the right cheek. There is no definitive drainable peripherally enhancing collection within this region although there does appear to be early phlegmonous change with a band of confluent edema measuring approximately 2 x 0.3 cm. Moderate fat stranding in the right retromaxillary soft tissues. The left-sided retromaxillary, and bilateral pterygopalatine fossa, temporal fossa, and parapharyngeal adipose tissue is maintained. No demonstrated soft tissue abnormalities within the intrinsic tissues of the tongue. CT/CT facial bones w IV con IMPRESSION: 1. Persistent socket of the mandibular right 3rd molar. Moderate edema within the soft tissues of the right cheek. There is no definitive drainable peripherally enhancing collection within this region at this time. Although there does appear to be early phlegmonous change with a band of confluent edema measuring approximately 2 x 0.3 cm. If clinically indicated, this may be more directly assessed with ultrasound. 2. Dehiscence of the nasal septum. 3. Mild sinonasal mucosal disease. Electronically signed by: Nathaniel Ch DO 08/12/2024 02:38 PM ANN
[2024-08-12 09:32] VITALS: BP 141/84; PULSE 104; RESP 18; TEMP 36.8; O2SAT 98; BMI 26.3
--- OUTSIDE RECORDS SUMMARY | 2024-08-12 09:32 | XMS_ITS | Continuity of Care Document ---
Author Organization [facility] [place] Address [address] [place] [address]- Care Team Providers Care Food Chemist Name Role Phone Kendrick VERAS, Elsi Latif Primary Care Physician [place] [facility] [place] 08/02/24 [facility] Adult [address] [place] [address]- Encounter Type: Triage Allergies, Adverse Reactions, Alerts Substance Criticality Severity Reaction Reaction Severity Status Other Environmental Allergy trees/congestion Active Immunizations Given and Recorded Vaccine Date Status Refusal Reason influenza virus vaccine, inactivated 06/11/23 Clarence rded influenza virus vaccine, inactivated 08/11/21 Clarence rded influenza virus vaccine, inactivated 1 07/11/18 Gi trae influenza virus vaccine, inactivated 2 06/16/17 Gi trae influenza virus vaccine, inactivated 07/01/16 Give n influenza virus vaccine, inactivated 06/14/15 Clarence rded SARS-CoV-2 (COVID-19) mRNA-1273 vaccine 08/11/21 R ecorded SARS-CoV-2 (COVID-19) mRNA-1273 vaccine 01/13/21 R ecorded SARS-CoV-2 (COVID-19) mRNA-1273 vaccine 12/17/20 R ecorded Influenza Virus Vaccine (oldterm) 3 07/21/20 Recor ded tetanus/diphtheria/pertussis, acel(Tdap) 05/23/15 Given 1Result Comment: [07/11/2018] [facility] [id number] 2Result Comment: [06/16/2017] [facility] [id number] 3Result Comment: influenza lot [id number] exp 01-12-[address] [facility] Medications baclofen 10 mg oral tablet 10 mg, 1, tablet, By Mouth, 3 times a day, # 90 tablet, Refills 0, Tot. Refills 0, Maintenance, 08/14/23 1:27:00 PM EST, Route to Pharmacy Electronically, [facility]/pharmacy #[id number], Partial fill upon patient request if the prescription is for a schedule II opioid drug., 190, cm, 08/14/23 12:56:00 EST, Height, 93, kg, 12/01/22 15:53:00 EDT, Dry Weight Start Date: 08/14/23 Stop Date: 09/13/23 Status: Ordered Quantity: 90.0 Unit: tablet Repeat number: 1 cyclobenzaprine 10 mg oral tablet 1, tablet, By Mouth, 3 times a day, # 90 tablet, Refills 1, Maintenance, 07/28/23 7:27:00 AM EST, Route to Pharmacy Electronically, [id number], 190, cm, 04/04/23 7:33:00 EDT, Height, 93, kg, 12/01/22 15:53:00 EDT, Dry Weight Start Date: 07/28/23 Status: Ordered Quantity: 90.0 Unit: tablet Repeat number: 1 fluticasone 50 mcg/inh inhalation powder 1 puffs, Inhalation, 2 times a day, # 60 each, 2 Refills, Maintenance, 04/09/24 7:11:00 AM EDT, Powder, [id number], Partial fill upon patient request if the prescription is for a schedule II opioid drug., 190, cm, 04/09/24 6:57:00 EDT, Height, 93, kg, 12/01/22 15:53:00 EDT, Dry Weight Start Date: 04/09/24 Status: Ordered Quantity: 60.0 Unit: each Repeat number: 3 ibuprofen 800 mg oral tablet 1, tablet, By Mouth, Every 12 hours, # 60 tablet, Refills 0, Maintenance, 07/03/24 6:39:00 AM EST, Route to Pharmacy Electronically, [id number], 190, cm, 05/02/24 12:28:00 EDT, Height, 93, kg, 12/01/22 15:53:00 EDT, Dry Weight Start Date: 07/03/24 Status: Ordered Quantity: 60.0 Unit: tablet Repeat number: 1 loratadine 10 mg oral tablet 1, tablet, By Mouth, Daily, # 90 tablet, Refills 0, Maintenance, 07/11/24 10:09:00 AM EST, Route toPharmacy Electronically, [id number], 190, cm, 05/02/24 12:28:00 EDT, Height, 93, kg,12/01/22 15:53:00 EDT, Dry Weight Start Date: 07/11/24 Status: Ordered Quantity: 90.0 Unit: tablet Repeat number: 1 traZODone 50 mg oral tablet 1.5, tablet, By Mouth, Daily at bedtime, # 135 tablet, Refills 1, Maintenance, 06/16/24 8:43:00 PM EDT, Route to Pharmacy Electronically, [id number], 190, cm, 05/02/24 12:28:00 EDT, Height, 93, kg, 12/01/22 15:53:00 EDT, Dry Weight Start Date: 06/16/24 Status: Ordered Quantity: 135.0 Unit: tablet Repeat number: 1 Problem List Condition Confirmation Course Effective Dates Status Health St atus Informant Arthritis of knee, left Confirmed Active Carpal tunnel syndrome Confirmed Active Degenerative disc disease, lumbar Confirmed Active History of kidney stones Confirmed Active Insomnia Confirmed Active Headache, post-traumatic Confirmed Active Sciatica Confirmed Active Varicose vein of leg Confirmed Active Social History Social History Type Response Smoking Status Never smoker; Tobacc o user in household: No entered on: 03/19/15 Sex Sex Representation Male (finding) Patient Care team information Care Team Personnel Name: Elsi Marks NP Position: S PCO Associate Professional Member Role: PCP Address: [address] [place] [phone]- Telecom: Care Team Related Persons Name: BHARTI CRAWFORD Name: NABILA CRAWFORD Insurance Providers Guarantor name: HEIDY ALFREDA [facility] Plan Information #: 1 Payer: [facility] Member Number: NA Policy Number: NA Group Number: NA
--- OUTSIDE RECORDS SUMMARY | 2024-08-12 09:32 | XMS_ITS | Continuity of Care Document ---
Author Organization [facility] [place] Address [address] [place] [address]- Care Team Providers Care Black Top Roller Name Role Phone Kendrick VERAS, Elsi Latif Primary Care Physician Encounter [facility] [place] Date(s): 07/11/24 - 08/10/24 [facility] Adult [address] [place] [address]- Encounter Type: Triage Allergies, Adverse Reactions, Alerts [...] tetanus/diphtheria/pertussis, acel(Tdap) 05/23/15 Given 1Result Comment: [07/11/2018] [facility] [id number] 2Result Comment: [06/16/2017] [facility] [id number] 3Result Comment: influenza lot [id number] exp 01-12-2021 [facility] Medications baclofen 10 mg oral tablet 10 mg, 1, tablet, By Mouth, 3 times a day, # 90 tablet, Refills 0, Tot. Refills 0, Maintenance, 08/14/23 1:27:00 PM EST, Route to Pharmacy Electronically, [facility]/pharmacy #[id number], Partial fill upon patient request [...] 7:27:00 AM EST, Route to Pharmacy Electronically, [id number], 190, cm, 04/04/23 7:33:00 EDT, Height, 93, kg, 12/01/22 15:53:00 EDT, Dry Weight Start Date: 07/28/23 Status: Ordered Quantity: 90.0 Unit: tablet Repeat number: 1 fluticasone 50 mcg/inh inhalation powder 1 puffs, Inhalation, 2 times a day, # 60 each, 2 Refills, Maintenance, 04/09/24 7:11:00 AM EDT, Powder, [facility], Partial fill upon patient request [...] 6:39:00 AM EST, Route to Pharmacy Electronically, [id number], 190, cm, 05/02/24 12:28:00 EDT, Height, 93, kg, 12/01/22 15:53:00 EDT, Dry Weight Start Date: 07/03/24 Status: Ordered Quantity: 60.0 Unit: tablet Repeat number: 1 loratadine 10 mg oral tablet 1, tablet, By Mouth, Daily, # 90 tablet, Refills 0, Maintenance, 07/11/24 10:09:00 AM EST, Route toPharmacy Electronically, [facility], 190, cm, 05/02/24 12:28:00 EDT, Height, 93, kg,12/01/22 15:53:00 EDT, Dry Weight Start Date: 07/11/24 Status: Ordered Quantity: 90.0 Unit: tablet Repeat number: 1 traZODone 50 mg oral tablet 1.5, tablet, By Mouth, Daily at bedtime, # 135 tablet, Refills 1, Maintenance, 06/16/24 8:43:00 PM EDT, Route to Pharmacy Electronically, [id number], 190, cm, 05/02/24 12:28:00 EDT, [...] PCO Associate Professional Member Role: PCP Address: [address] [place] [address]- Telecom: Care Team Related Persons Name: BHARTI CRAWFORD Name: NABILA CRAWFORD Insurance Providers Guarantor name: HEIDY GUEVARA [facility] Plan Information #: 1 Payer: [facility] Member Number: NA Policy Number: NA Group Number: NA
--- OUTSIDE RECORDS SUMMARY | 2024-08-12 09:32 | XMS_ITS | Continuity of Care Document ---
Author Organization [facility] Address [address] [place] [address] [address] [place] [address] Phone Care Team Providers Care Senior Lead Project Manager Name Role Phone Ji BUNCH FACS Keyla THOMAS Unavailable Unavailable Allergies, Adverse Reactions, Alerts Substance Reaction Status Criticality No Known Allergies Active No Inform ation Medications Medication Instructions Dosage Effective Dates (start - stop) Status Comments ibuprofen 800 mg tablet - Ac tive cyclobenzaprine 10 mg tablet - Active trazodone 50 mg tablet - Act jose Procedures Procedure Date Offic/outpt E&m Estab 5 Min Trial - Tele medicine Office/Outpt E&M Established 15 Mins Sep Duplex Scan-extrem Veins; Comp Advance Directives Directive Yes / No Effective Date File Name No Information Encounters Encounter Description Practice Location Reason(s) For Visit Diagnoses Date Provider Providers Copied on Encounter [facility], [address] [place] [address] [address], [place], [id number], [place] tel:[phone] [facility] No Information 3 Ji BUNCH FACS RVT PAUL [place]. [address] [facility], [place], [address], [place]. tel:[phone] Referring Provider: Elsi Marks [facility], [address] [place] [address], [place], [address]. tel:[phone] Offic/outpt E&m Estab 5 Min Trial - Telemedicine [facility], [address] [place] [address] [address], [place], [id number], [place] tel:[phone] [facility] [place] Venous insufficiency (chronic) (peripheral) 3 Ji BUNCH FACS T VI Keyla Alvarado. [facility], [place] [address], [place], [address], [place]. tel:[phone] Referring Provider: Elsi Marks CNP, [address] [place] [address], [place], [address]. tel:[phone] Office/Outpt E&M Established 15 Mins [facility], [address] [place] [address] [address], [place], [id number], [place] tel:[phone] [facility] [place] Venous insufficiency (chronic) (peripheral)Rory dy mass index (BMI) 27.0-27.9, adult 3 Ji BUNCH FACS [facility] Keyla Alvarado. [address] [place] [address], [place], [address], [place]. tel:[phone] Referring Provider: Elsi Marks CNP, [address] [place], [place] [address]by , [place], [address]. tel:[phone] [facility], [address] [place] [address] [address], [place], [id number], [place] tel:[phone] [facility] - [place] [facility] [place] Varicose veins of bilateral lower extremities with painOther specified soft tissue disorders 2 Ji BUNCH FACS T [facility] Keyla Alvarado. [address] [place] [address], [place] [address], [place], [address], [place]. tel:[phone] Referring Provider: Keyla Workman MD, FACS [facility], [address] [place] [address], [place], [address]. tel:[phone] Family History Family Member Type Diagnosis Age At Onset No Information Payers Payer name Insurance type Covered alliance party ID Authoriza timynor(s) Robinson [id number] Social History Type Description Quantity Date Captured Comments Alcohol Use Details Unknown Caffeine Use Details Unknown Tobacco Use Status No Information Smoking Status No Information Sex Male Chief Complaint And Reason For Visit No Information Reason For Referral Reason For Referral No Information Plan Of Treatment Date Type Action Status Nutrition Recommendation Nutrition therap y completed History Of Present Illness Encounter Date Complaint History Of Prese nt Illness No Information Functional Status Date Functional Assessmen t No Information Instructions Date Instruction Additional Shelbyr sandra Patient education booklet given Related to Venous Insufficiency (Chronic / Peripheral) Assessments Type Assessment Date No Information Patient Care Teams Name Effective Dates (start - stop) Status Members No Information
--- NOTE | 2024-08-12 09:53 | ED.DENTAL ---
HPI - Dental/Oral General Chief complaint: Dental/Oral Stated complaint: Facial swelling, tooth extraction last week Time Seen by Provider: 08/12/24 09:45 Source: patient Mode of arrival: ambulatory Limitations: no limitations History of Present Illness ED Provider: Andreina Sawyer APRN HPI Narrative: 58-year-old male with no known medical history presents the ER with complaints of right-sided facial swelling for the last 3 days. Patient reports that he was at his dentist in [place] and had a right lower molar extracted on Tuesday. The next day he woke up with swelling and pain. No fevers or chills. Taking ibuprofen/Tylenol home with continued pain Related Data Home Medications ?Medication ?Instructions ?Recorded ?Confirmed cyclobenzaprine 10 mg tablet 10 mg PO BID PRN 09/10/21 11/11/21 trazodone 50 mg tablet 0 mg PO 09/10/21 11/11/21 Previous Rx's ?Medication ?Instructions ?Recorded ondansetron 4 mg disintegrating 4 mg PO Q6-8H PRN nausea and 11/22/21 tablet vomiting #7 tabs oxycodone 5 mg tablet 5 mg PO Q6H PRN Pain, Moderate #20 11/22/21 tabs prednisone 20 mg tablet 20 mg PO DAILY 5 days #5 tabs 11/24/21 tamsulosin 0.4 mg capsule 0.4 mg PO DAILY 14 days #14 caps 11/24/21 clindamycin HCl 150 mg capsule 150 mg PO TID #21 caps 08/12/24 Allergies Allergy/AdvReac Type Severity Reaction Status Date / Time No Known Allergies Allergy Verified 08/12/24 09:32 Review of Systems Review of Systems: Yes all other systems are reviewed and are negative Constitutional: Constitutional: Reports no additional constitutional complaints, Denies body ache(s), Denies chills, Denies fever(s), Denies headache(s) and Denies weakness Eyes: Eyes: Reports no additional eye complaints and Denies change in vision ENT: Reports system reviewed and no additional complaints, except as documented, Reports dental pain, Denies dizziness, Reports facial pain, Denies headache(s), Denies nasal congestion, Denies nasal discharge and Denies neck pain Cardiovascular: Cardiovascular: Reports no additional cardiovascular complaints, Denies chest pain, Denies leg edema and Denies dyspnea Respiratory: Respiratory: Reports no additional respiratory complaints, Denies cough and Denies dyspnea Gastrointestinal: Gastrointestinal: Reports no additional gastrointestinal complaints, Denies abdominal pain, Denies diarrhea, Denies nausea and Denies vomiting Genitourinary: Genitourinary: Denies urinary incontinence Musculoskeletal: Musculoskeletal: Reports no additional musculoskeletal complaints, Denies back pain, Denies arthralgias, Denies joint swelling, Denies neck pain, Denies numbness and Denies tingling Integumentary/Breasts: Skin/Breast: Reports system reviewed and no additional complaints, except as docu and Denies rash Neurologic: Reports system reviewed and no additional complaints, except as documented, Denies Abnormal speech present, Denies dizziness, Denies headache(s), Denies numbness, Denies tingling and Denies weakness PMFSH Past Medical History Attestation statement: The following information was validated with the patient. Source: old records reviewed and nursing notes reviewed Medical History No known health problems Surgical History No pertinent past surgical history Family History Family History Father No problems noted. Mother No problems noted. Social History Social History Patient Tobacco Use Status: Never used Tobacco Smoked in Last 30 Days: No Use of substances other than those prescribed or required for medical reasons: No Substance Use Type: Marijuana Advance Directives: No Advance Directives Information Provided: Yes Do you have a plan to hurt others: No Plan Physical Exam Vital Signs: Vital Signs: Last Vital Signs Temp 98.3 F 08/12/24 15:10 Pulse 98 08/12/24 15:10 Resp 20 08/12/24 15:10 BP 141/89 H 08/12/24 15:10 Pulse Ox 98 08/12/24 15:10 O2 Del Method Room Air 08/12/24 15:10 BMI result Body Mass Index 26.3 Const: General: cooperative, healthy appearing, comfortable and no acute distress Orientation/consciousness: patient oriented x3 Limitations: no limitations HEENT: Other: mild trismus Head: Yes normal to inspection Ears: hearing grossly normal bilaterally and TM's normal bilaterally General nose exam: Normal external nose present Face and sinus: Yes normal facial exam Mouth: Normal oral and palatal mucosa present Teeth image: 1. absent tooth Right cheek swelling/firm area Throat: Yes posterior oropharynx normal, Yes tonsils normal and Yes uvula midline Eyes: General: appearance normal, both eyes and all related structures Pupils: Equal, round and reactive pupils present Neck: Neck: Yes normal visual inspection, Yes full ROM, Yes no lymphadenopathy and Yes no meningeal signs Chest: Chest palpation & inspection: normal inspection of the chest Resp: Effort & Inspection: normal respiratory effort Auscultation: clear to auscultation bilaterally Cardio: Rate: regular rate Rhythm: regular rhythm Peripheral pulses: Peripheral pulses 2+ throughout GI: Inspection: Yes normal to inspection Palpation (GI): Soft to palpation and nontender Auscultation: normal bowel sounds Back/Spine/Pelvis: Thoracic/Lumbar Spine: thoracic and lumbar spine normal to inspection Skin: General skin exam: no rashes or lesions noted Neuro: General: patient oriented x3, no meningeal signs, no focal motor deficits and normal sensation to monofilament Cranial nerves: Yes Equal, round and reactive pupils present Cognition (Neuro): normal cognition Speech: No Abnormal speech present Gait exam (Neuro): Normal gait present Motor exam (neuro): 5/5 motor strength present throughout Extrem: General: Yes normal to inspection Course Course Course Narrative: 1445- I was notified by nursing of the following. Patient came out of his room and was verbally abusive and aggressive to staff. Patient was escorted out of the department by security. Medications Administered Discontinued Medications Generic Name Dose Route Start Last Admin Trade Name Jorgeq PRN Reason Stop Dose Admin Iohexol 100 ml 08/12/24 11:33 08/12/24 11:34 Iohexol 350 Mg/Ml 100 Ml Infus..Btl IV 08/12/24 11:34 85 ml ONCE ONE Administration Ketorolac Tromethamine 15 mg 08/12/24 09:52 08/12/24 10:13 Ketorolac Tromethamine 15 Mg/Ml Vial IVPUSH 08/12/24 09:53 15 mg ONCE ONE Administration Morphine Sulfate 4 mg 08/12/24 13:19 08/12/24 13:26 Morphine Sulfate 4 Mg/Ml Cartridge IVPUSH 08/12/24 13:20 4 mg ONCE ONE Administration Protocol Medical Decision Making Medical Decision Making [facility] Narrative: 58-year-old male with no known medical history presents the ER with complaints of right-sided facial swelling for the last 3 days. Patient reports that he was at his dentist in [place] and had a right lower molar extracted on Tuesday. The next day he woke up with swelling and pain. No fevers or chills. Taking ibuprofen/Tylenol home with continued pain On exam patient has right maxillary swelling and supramandibular swelling which is firm and tender with some mild trismus on exam. I do not see any obvious abscess inside of the mouth Will obtain labs, Ct facial bones with IV contrast, analgesia Differential Diagnosis Differential Diagnoses: The differential diagnosis associated with the presentation includes abscess, deeper spaced infection, osteo Admission/Observation Consideration of admission/observation: Escalation of care including admission/observation considered Lab Data [facility] Lab Attestation statement: I reviewed the patient's lab results. 08/12/24 10:07 08/12/24 10:07 Labs: Lab Results 08/12/24 Range/Units 10:07 WBC 13.5 H (4.8-10.8) X10*3/uL RBC 4.47 L (4.60-5.80) X10*6/uL Hgb 13.9 L (14.0-18.0) g/dl Hct 40.4 L (42.0-52.0) % MCV 90.4 (80.0-98.0) fL MCH 31.1 (27.0-33.0) pg MCHC 34.4 (31.0-36.0) g/dl RDW 12.5 (11.0-16.0) % Plt Count 320 (160-400) X10*3/uL MPV 8.5 L (9.4-12.4) fL Immature Gran % (Auto) 0.4 (0.0-0.4) % Neut % (Auto) 77.7 H (45-73) % Lymph % (Auto) 8.9 L (20-40) % [place] % (Auto) 12.2 H (2-11) % Eos % (Auto) 0.5 (0-4) % Baso % (Auto) 0.3 (0-2) % Lymph # (Auto) 1.2 (1.2-4.9) X10*3/uL [place] # (Auto) 1.6 H (0.1-1.2) X10*3/uL Eos # (Auto) 0.1 (0.0-0.4) X10*3/uL Baso # (Auto) 0.0 (0.0-0.2) X10*3/uL Abs Immat Gran (auto) 0.05 H (0.00-0.03) X10*3/uL Absolute Neuts (auto) 10.5 H (2.0-8.3) x10*3/uL Absolute Nucleated RBC 0.000 (0.0-0.012) X10*3/uL Nucleated RBC % (auto) 0.0 (0.0-0.2) /100WBC Smear Tech's Comments VERIFIED Sodium 138 (135-145) mmol/L Potassium 3.7 (3.3-5.1) mmol/L Chloride 105 (96-108) mmol/L Carbon Dioxide 22 (22-29) mmol/L Anion Gap 15 (12-20) BUN 15 (9-16) mg/dL Creatinine 0.84 (0.5-1.4) mg/dL Estim Creat Clear Calc 111.7 Estimated GFR > 60 Random Glucose 104 (60-115) mg/dL Calcium 9.1 D (8.4-10.2) mg/dL Independent Interpretation I performed an independent interpretation of an: CT Scan Radiology Impression Discussion of test interpretation with radiology: I have reviewed the radiologist's reading. Discharge Plan Discharge Clinical Impression: Dental infection Patient Disposition: Elopement Instructions: Dental Abscess (ED) Prescriptions: New clindamycin HCl 150 mg capsule 150 mg PO TID Qty: 21 0RF No Action prednisone 20 mg tablet 20 mg PO DAILY 5 Days Qty: 5 0RF tamsulosin 0.4 mg capsule 0.4 mg PO DAILY 14 Days Qty: 14 0RF ondansetron 4 mg tablet,disintegrating 4 mg PO Q6-8H PRN (Reason: nausea and vomiting) Qty: 7 0RF oxycodone 5 mg tablet 5 mg PO Q6H PRN (Reason: Pain, Moderate) Qty: 20 0RF trazodone 50 mg tablet 0 mg PO cyclobenzaprine 10 mg tablet 10 mg PO BID PRN Referrals: Elsi Marks, [employer] BUILDINGS ASSEMBLER [Primary Care Provider] - 1 week Interventions: ED Discharge Assessment Last Done: 08/12/24 15:10 Discharge Date/Time: 08/12/24 15:13 Print Language: Pakistani
--- OUTSIDE RECORDS SUMMARY | 2024-08-12 09:56 | XMS_ITS | Continuity of Care Document ---
Author Organization [facility] Address [address] [place] [address] [address] [place] [address] Phone Care Team Providers Care Gantry Crane Operator Name Role Phone Ji BUNCH FACS Keyla [...] Providers Copied on Encounter [facility], [address] [place] [address] [address], [place], [id number], [place] tel:[phone] [facility] No Information 3 Ji BUNCH FACS RVT PAUL Alvarado. [address] [facility] [address], [place], [address], [place]. tel:[phone] Referring Provider: Elsi Marks [facility], [address] [place] [address], [place], [address]. tel:[phone] Offic/outpt E&m Estab 5 Min Trial - Telemedicine [facility], [address] [place] [address] [address], [place], [id number], [place] tel:[phone] [place] Venous insufficiency (chronic) (peripheral) 3 Ji BUNCH FACS T VI Keyla Alvarado. [facility], [place] [address], [place], [address], [place]. tel:[phone] Referring Provider: Elsi Marks CNP, [address] [place] [address], [place], [address]. tel:[phone] Office/Outpt E&M Established 15 Mins [facility], [address] [place] [address] [address], [place], [id number], [place] tel:[phone] [place] Venous insufficiency (chronic) (peripheral)Rory dy mass index (BMI) 27.0-27.9, adult 3 Ji BUNCH FACS [facility] Keyla Alvarado. [address] [place] [address], [place], [address], [place]. tel:[phone] Referring Provider: Elsi Marks CNP, [address] [place], [place] [address]by , [place], [address]. tel:[phone] [facility], [address] [place] [address] [address], [place], [id number], [place] tel:[phone] [facility] - [place] Varicose veins of bilateral lower extremities with painOther specified soft tissue disorders 2 Ji BUNCH FACS T [facility] Keyla Alvarado. [address] [place] [address], [place] [address], [place], [address], [place]. tel:[phone] Referring Provider: Keyla Workman MD, FACS T [facility], [address] [place] [address], [place], [address]. tel:[phone] Family History Family Member Type Diagnosis Age At Onset No Information Payers Payer name Insurance type Covered alliance party ID Authoriza timynor(s) Robinson [id number] Social History Type Description Quantity Date Captured [...]
[2024-08-12] MEDS: Ketorolac Tromethamine 15 MG/ML VIAL IVPUSH (10:13)
[2024-08-12 10:15] LABS: Basophils Percent Auto 0.3 % (0-2); Eosinophils Absolute Auto 0.1 X10*3/uL (0.0-0.4); Eosinophils Percent Auto 0.5 % (0-4); Hematocrit 40.4 % (42.0-52.0); Hemoglobin 13.9 g/dl (14.0-18.0); Imm Gran Abs Auto 0.05 X10*3/uL (0.00-0.03); Imm Gran Pct Auto 0.4 % (0.0-0.4); Lymphocytes Absolute Auto 1.2 X10*3/uL (1.2-4.9); Lymphocytes Percent Auto 8.9 % (20-40); MANUAL DIFF FLAG SCAN; Mean Corpuscular HGB Conc 34.4 g/dl (31.0-36.0); Mean Corpuscular Hemoglobin 31.1 pg (27.0-33.0); Mean Corpuscular Volume 90.4 fL (80.0-98.0); Mean Platelet Volume 8.5 fL (9.4-12.4); Monocytes Absolute Auto 1.6 X10*3/uL (0.1-1.2); Monocytes Percent Auto 12.2 % (2-11); Neutrophils Absolute Auto 10.5 x10*3/uL (2.0-8.3); Neutrophils Percent Auto 77.7 % (45-73); Platelet Count 320 X10*3/uL (160-400); Red Blood Count 4.47 X10*6/uL (4.60-5.80); Red Cell Distribution Width 12.5 % (11.0-16.0); SCAN SMEAR FLAG 1; White Blood Count 13.5 X10*3/uL (4.8-10.8)
[2024-08-12 10:30] LABS: Anion Gap 15 (12-20); Blood Urea Nitrogen 15 mg/dL (9-16); Calcium 9.1 mg/dL (8.4-10.2); Carbon Dioxide 22 mmol/L (22-29); Chloride 105 mmol/L (96-108); Creatinine Clr Calc Pharmacy 111.7; Estimated Glomerular Filt Rate > 60; Glucose Random 104 mg/dL (60-115); Potassium 3.7 mmol/L (3.3-5.1); Sodium 138 mmol/L (135-145)
[2024-08-12] MEDS: iohexoL 350 MG/ML 100 ML INFUS..BTL IV (11:34)
[2024-08-12 12:18] LABS: SLIDE REVIEW VERIFIED
[2024-08-12 13:15] VITALS: PULSE 98; RESP 20; O2SAT 98
[2024-08-12] MEDS: Morphine Sulfate 4 MG/ML CARTRIDGE IVPUSH (13:26)
--- NOTE | 2024-08-12 15:06 | PC.NURSE ---
pt was repeatedly berating staff for several hours today. pt was waiting for CT read from . Ct scan had not been read after close to 4 hours. After about 3 hours this RN called [facility] and they said the scan was in the queue but they would put a priority read on it. He was calling techs names, raising his voice, interrupting, and refused to listen to staff as they explained the delay on the read. Pt asked this nurse to speak to the person in charge of this floor and the charge nurse was brought in. Pt continued verbal tirade toward charge nurse. Provider was off unit. Decision was made in collaboration with security to walk pt off of property. IV removed.
[2024-08-12 15:10] VITALS: BP 141/89; PULSE 98; RESP 20; TEMP 36.8; O2SAT 98
--- NOTE | 2024-08-12 15:10 | PC.NURSE ---
This RN was advised of patient and behaviors, pt had been spoken to multiple times by staff/secuirty. Pt continued to escalate, charge entry specialist/nursing tunnel form placing supervisor/security/MD at bedside. Pt escorted out of ED at this time.
== END 2024-08-12 15:13 | disposition left against medical advice (07) ==
PROVIDERS: Nurse Practitioner Family; Emergency Provider Emergency Medicine; PCP Nurse Practitioner Family
DX: K02.9 Dental caries, unspecified (principal); K08.89 Other specified disorders of teeth and supporting structures; Z79.899 Other long term (current) drug therapy
CPT/HCPCS: 36415; 70487; 80048; 85025; 96374; 96375; 99284; J1885; J2270; Q9967

== ENCOUNTER 2025-05-27 10:22 | Day surgery (SDC) | payer BC, SELFPAY ==
--- OUTSIDE RECORDS SUMMARY | 2025-04-11 13:35 | XMS_ITS | Patient Health Record ---
Author Organization [facility] Address [address] [place] [address] Care Team Providers Care Signalman Name Role Phone Savita Barron Primary Care Provi sha Unavailable Virgil Costa Unavailable [phone] Allergies No Known Allergies Reason For Referral No Information Medications Medication SIG (Take, Route, Fr equency, Duration) Notes Start Date End Date Status Ibuprofen 200 MG 1 tablet with food o r milk as needed Orally prn as needed Active Immunizations Vaccine Route Administration Date Status Comme nts Influenza Unknown 06/29/2019 Administered Influenza Unknown 06/20/2024 Administered Social History Tobacco Use: Social History Observation Description Date Details (start date - stop date) Never Smoker NA - NA Tobacco Use/Smoking Question Answer Notes Patient is a nonsmoker AUDIT-C (Standard) Question Answer Notes Did you have a drink containing alcohol in the p ast year? No Points 0 Interpretation Negative Section Notes: Nonsmoker; no sig alcohol Nonsmoker; no sig alcohol Nonsmoker; no sig alcohol Problems Problem Type SNOMED Code ICD Code Onset Dates Problem Status W/U Status Risk Notes Problem 709640325 Encounter for screening for malignant neoplasm of colon (Z12.11) Active confirmed Problem 689053068 History of adenomatous polyp of colon (Z86.010) Active confirmed Problem 848055070 Diverticulitis (K57.92) Active confirmed Problem [id number] Preprocedural examination (Z01.818) Active confirmed Problem GERD (gastroesophageal reflux disease) (K21.9) Active confirmed Vital Signs Temperature 99.3 degrees Fahrenheit 03/05/2025 Blood pressure diastolic 01 mm Hg 03/05/2025 Height 74.25 in 03/05/2025 Blood pressure systolic 001 mm Hg 03/05/2025 Weight 205 lbs 03/05/2025 BMI 26.14 kg/m2 03/05/2025 Procedures Procedure Date Ordered Date Performed Result Body Sit e UPPER GI ENDOSCOPY 03/05/2025 N/A COLONOSCOPY 03/05/2025 N/A Encounters Encounter Location Date Provider Diagnosis [facility] [address] [place] [address] 03/05/2025 Virgil Costa Encounter for screening for malignant neoplasm of colon Z12.11 ; GERD (gastroesophageal reflux disease) K21.9 and History of adenomatous polyp of colon Z86.010 [facility] [address] [place] [address] 03/05/2025 Virgil Costa Assessments Encounter Date Diagnosis (ICD Code) Assessment Notes Treatment Notes Treatment Clinical Notes Section Notes 03/05/2025 Encounter for screening for malignant neoplasm of colon (ICD-10 - Z12.11) Overall, Alberto appears quite well. Given his history of a previous tubular adenoma and his last colonoscopy being just over 5 years ago, I did recommend a follow-up colonoscopy for further screening purposes. We did review the rationale for that in regard to colon cancer prevention. We did discuss his upper GI complaints which sound consistent with some intermittent regurgitation and reflux. He is not having any worrisome symptoms such as dysphagia or anorexia. The episodes do not seem particularly frequent nor problematic for him. However, he is concerned about the symptoms and I did recommend an upper endoscopy for further evaluation. Full consent has been obtained from him for both procedures, including risk of bleeding and perforation. The procedures will be done with monitored anesthesia care. Alberto was very comfortable with this plan. Thank you again for allowing me to participate in Alberto's care. I shall continue to keep you advised of his progress. 03/05/2025 GERD (gastroesophage al reflux disease) (ICD-10 - K21.9) Overall, Alberto appears quite well. Given his history of a previous tubular adenoma and his last colonoscopy being just over 5 years ago, I did recommend a follow-up colonoscopy for further screening purposes. We did review the rationale for that in regard to colon cancer prevention. We did discuss his upper GI complaints which sound consistent with some intermittent regurgitation and reflux. He is not having any worrisome symptoms such as dysphagia or anorexia. The episodes do not seem particularly frequent nor problematic for him. However, he is concerned about the symptoms and I did recommend an upper endoscopy for further evaluation. Full consent has been obtained from him for both procedures, including risk of bleeding and perforation. The procedures will be done with monitored anesthesia care. Alberto was very comfortable with this plan. Thank you again for allowing me to participate in Alberto's care. I shall continue to keep you advised of his progress. 03/05/2025 History of adenomatous polyp of colon (ICD-10 - Z86.010) Overall, Alberto appears quite well. Given his history of a previous tubular adenoma and his last colonoscopy being just over 5 years ago, I did recommend a follow-up colonoscopy for further screening purposes. We did review the rationale for that in regard to colon cancer prevention. We did discuss his upper GI complaints which sound consistent with some intermittent regurgitation and reflux. He is not having any worrisome symptoms such as dysphagia or anorexia. The episodes do not seem particularly frequent nor problematic for him. However, he is concerned about the symptoms and I did recommend an upper endoscopy for further evaluation. Full consent has been obtained from him for both procedures, including risk of bleeding and perforation. The procedures will be done with monitored anesthesia care. Alberto was very comfortable with this plan. Thank you again for allowing me to participate in Alberto's care. I shall continue to keep you advised of his progress. Plan Of Treatment Pending Test Test Name Order Date UPPER GI ENDOSCOPY 03/05/2025 COLONOSCOPY 03/05/2025 Future Test Test Name Order Date COLONOSCOPY 10/10/2014 COLONOSCOPY 12/04/2019 Next Appt Details Provider Name:Virgil Mg Costa , 05/27/2025 11:40:00 AM, [address] [place] [address] , [place], [place], [id number], Insurance Providers Payer Name Payer Address Payer Phone Subscriber Number Group Number Insured Name Patient Relationship to Insured Coverage Start Date Coverage End Date [facility] [id number] [id number] ALBERTO GUEVARA Self - patient is the insured 6 Medical (General) History Medical History History ICD Code Denies [place],DM,CVA,Lung disease,renal dise ase Concussion in 2012 Kidney stones Diverticulitis--descending c olon 10/2018-uncomplicated and treated with outpatient antibiotics Screening colonoscopy in 12/2014 with rem oval of a small tubuar adenoma Negative colonoscopy in 01/2020 Surgical History Surgery Date(Month/Year) Foot surgery-Ganglion cyst 2014
[2025-05-23 12:39] VITALS: BMI 26.1
--- NOTE | 2025-05-24 08:35 | HO.ANESPROP2 ---
Documented by User: Yessy Mitchell NP 05/24/25 08:40 HPI - Anesthesia Eval Consult details Narrative: 59yo M for Upper Endoscopy and Colonoscopy PMF Active Problems Active Problems: All Active Problems Ascending aorta enlargement (Acute) Aortic valve calcification (Acute) Past Medical History Medical History History of diverticulitis (10/2018) Hx of concussion (2012) History of kidney stones Family History Family History Father No problems noted. Mother No problems noted. Surgical History Surgical History Hx of foot surgery (2013) Hx of colonoscopy (01/2020) Social History Social History Patient Tobacco Use Status: Never used Tobacco Use of substances other than those prescribed or required for medical reasons: No Substance Use Type: Marijuana Are you DNR?: No Advance Directives: No Advance Directives Information Provided: Yes Meds Allergies Allergy/AdvReac Type Severity Reaction Status Date / Time No Known Allergies Allergy Verified 05/27/25 10:32 Home Medications ?Medication ?Instructions ?Recorded ?Confirmed ?Last Taken ?Type cyclobenzaprine 10 mg tablet 10 mg PO BID PRN Back Pain 09/10/21 05/27/25 Unknown History melatonin 10 mg tablet 10 mg PO DAILY 05/27/25 05/27/25 Unknown History Exam Height,Weight and Vital Signs: Height 6 ft 2.25 in Weight 92.986 kg Narrative Narrative: EKG 04/2025 Ventricular Rate: 67 BPM Atrial Rate: 67 BPM P-R Interval: 180 ms QRS Duration: 92 ms Q-T Interval: 386 ms QTC Calculation(Bazett): 407 ms P Sutherlin: 41 degrees R Sutherlin: 34 degrees T Sutherlin: 55 degrees Normal sinus rhythm Normal ECG No previous ECGs available Confirmed by TRISTON CONDE MD ([id number]) on 05/21/2025 11:41:07 AM US AAA Screen 10/2024 IMPRESSION: Proximal abdominal aortic aneurysm measuring 3.0-3.4 cm as above. Recommend follow-up ultrasound or CTA in 3 years per ACR and SVS guidelines. Assessment and Plan Assessment Anesthesia Assessment: Chart Reviewed Documented by User: Nuvia Toro MD 05/27/25 12:22 PMFSH Past Medical History Medical History History of diverticulitis (10/2018) Hx of concussion (2012) History of kidney stones Family History Family History Father No problems noted. Mother No problems noted. Surgical History Surgical History Hx of foot surgery (2013) Hx of colonoscopy (01/2020) History of Problems with Anesthesia: No Social History Social History Patient Tobacco Use Status: Never used Tobacco Use of substances other than those prescribed or required for medical reasons: No Substance Use Type: Marijuana Are you DNR?: No Advance Directives: No Advance Directives Information Provided: Yes Meds Allergies Allergy/AdvReac Type Severity Reaction Status Date / Time No Known Allergies Allergy Verified 05/27/25 10:32 Home Medications ?Medication ?Instructions ?Recorded ?Confirmed ?Last Taken ?Type cyclobenzaprine 10 mg tablet 10 mg PO BID PRN Back Pain 09/10/21 05/27/25 Unknown History melatonin 10 mg tablet 10 mg PO DAILY 05/27/25 05/27/25 Unknown History Exam Airway Mallampati Class: III (loose right upper tooth) TM Dist: >3cm Neck ROM: Full Loose/Missing/Broken Teeth: No Heart: RRR Lungs: CTA Assessment and Plan Assessment Anesthesia Assessment: Anesthesia Plan Discussed Final Anesthetic Review History of Problems with Anesthesia: No NPO: Yes ASA Class: II Final Preanesthetic Review: Meds/Allgs Chart Reviewed, Consent Obtained/Reviewed and Anes Risks/Benef Reviewed Patient Risk: Low Procedure Risk: Intermediate Anesthetic Plan Anesthetic Plan: MAC: Disposition: Standard PACU
[2025-05-27 10:32] VITALS: BMI 26.0
[2025-05-27 10:36] VITALS: BP 139/92; PULSE 83; RESP 16; TEMP 36.9; O2SAT 96
[2025-05-27 13:30] VITALS: BP 133/98; PULSE 76; RESP 18; TEMP 36.2; O2SAT 99
--- NOTE | 2025-05-27 13:36 | PM.OP ---
Brief Operative Note Date of Service: 05/27/25 Pre-op diagnosis: GERD, Screening Post-op diagnosis: other (Polyps, GERD) Procedure: EGD with biopsies, Colonoscopy to the cecum and TI with cold snare polypectomy at 60cm, and bx/removal of polyp Surgeon: Virgil Costa MD Anesthesia: MAC Was an Plasma Specialist used for this Procedure?: No Estimated blood loss (mL): 2.0 Pathology: other (A. Gastric antrum B. EG Junction at 39cm C. Polyp at 60cm D. Polyp at 30cm ) Condition: stable Disposition: PACU
[2025-05-27 13:45] VITALS: BP 122/82; PULSE 71; RESP 18; O2SAT 100
--- NOTE | 2025-05-27 14:23 | OP_ITS ---
DATE OF SERVICE: 05/27/2025 SURGEON: Virgil Costa MD INDICATIONS: The patient presents for evaluation of intermittent gastroesophageal reflux, personal history of tubular adenoma of the colon, and colorectal cancer screening. Full consent has been obtained from him for this, including risks of bleeding and perforation. PREOPERATIVE DIAGNOSIS: POSTOPERATIVE DIAGNOSIS: PROCEDURE PERFORMED: Esophagogastroduodenoscopy with biopsies, and colonoscopy to the cecum and terminal ileum with cold snare polypectomy and biopsy and removal of polyp. ESTIMATED BLOOD LOSS: COMPLICATIONS: ANESTHESIA: Medication used, monitored anesthesia care. ASSISTANTS: SPECIMENS: PREOPERATIVE DIAGNOSES: Gastroesophageal reflux, personal history of tubular adenoma of the colon, colorectal cancer screening. POSTOPERATIVE DIAGNOSES: Gastroesophageal reflux, personal history of tubular adenoma of the colon, colorectal cancer screening, hiatal hernia, rule out Salazar's esophagus, mild gastritis, colon polyps, diverticulosis, and internal hemorrhoids. DESCRIPTION OF PROCEDURE: The patient was placed in the left lateral decubitus position. The Olympus video gastroscope was passed in the posterior oropharynx and upper esophagus under direct vision. The scope was passed slowly to the distal esophagus. The gastroesophageal junction appeared at 39 cm. There was some slight irregularity consistent with reflux and possible small, less than 1 cm areas of Salazar's mucosa. There was no esophagitis nor any lesions. The scope entered the stomach. There was a small hiatal hernia. The scope was advanced to the pylorus and the duodenum was cannulated to the descending portion. The duodenum including the bulb appeared normal without mass or ulceration. The scope was withdrawn back to the stomach. The gastric antrum had some mild areas of erythema and edema, but no erosions or ulceration. There was good peristalsis. Biopsies were obtained from the antrum. The scope was retroflexed visualizing the proximal stomach carefully, which appeared normal, without any sign of mass or ulceration. The scope was straightened and withdrawn back to the esophagus. Biopsies were obtained at the EG junction at 39 cm. Proximal to that, the esophageal mucosa appeared normal. The scope was withdrawn from the patient. He tolerated the procedure well and was turned around for the colonoscopy. The digital rectal exam revealed no abnormalities. The [email or web address] video pediatric colonoscope was entered into the rectum and advanced easily to the cecum. Once in the cecum, I did identify normal-appearing cecal pouch with appendiceal orifice and a normal-appearing ileocecal valve. The terminal ileum was cannulated and appeared normal. The scope was withdrawn back in the colon. The entire cecum and ileocecal valve appeared normal. The scope was slowly withdrawn assessing all mucosal surfaces carefully. Preparation was excellent. At 60 cm was an approximately 6 mm polyp, which was removed by cold snare polypectomy and recovered by suction. The polypectomy site appeared clean, without any sign of residual polyp nor significant bleeding. At 30cm was an approximately 3 mm polyp, which was biopsied and completely removed with a cold biopsy forceps. I did not visualize any other polyps, colitis, nor angiodysplasia. There was a mild amount of sigmoid diverticulosis. In the rectum, scope was retroflexed visualizing internal hemorrhoids, but no other pathology. The rectal mucosa appeared normal. The scope was straightened and withdrawn from the patient. He tolerated both procedures well and was returned to the recovery area in stable condition. IMPRESSION: 1. Colon polyps. 2. Diverticulosis. 3. Internal hemorrhoids. 4. Hiatal hernia, gastroesophageal reflux, rule out Salazar's esophagus. 5. Minimal gastritis. PLAN: The results of the biopsies will be checked. I would recommend a repeat colonoscopy in 5 years. He was advised not to use any aspirin nor NSAIDs for 1 week. If there happens to be Salazar' esophagus on the biopsies, I would recommend a repeat upper endoscopy in 3 years as long as there is no dysplasia. At this point, he is only having intermittent symptoms, and I will advise him to just use some p.r.n. [id number] medication for reflux as needed. However, I did advise him to certainly call if he develops any worsening or persistent symptoms, in which case we could put him on a prescription strength PPI if need be. MD DORIS Giron/BHAVESH / [id number] MAGUI
== END 2025-05-27 15:07 | disposition home or self-care (01) ==
PROVIDERS: Visit Provider Internal Medicine
PROC: (CPT 45385; principal; 2025-05-27 11:40)
DX: Z12.11 Encounter for screening for malignant neoplasm of colon (principal); Z86.0101 Personal history of adenomatous and serrated colon polyps; D12.4 Benign neoplasm of descending colon; D12.5 Benign neoplasm of sigmoid colon; K57.30 Diverticulosis of large intestine without perforation or abscess without bleeding; K64.8 Other hemorrhoids; K21.9 Gastro-esophageal reflux disease without esophagitis; K29.50 Unspecified chronic gastritis without bleeding; Z87.19 Personal history of other diseases of the digestive system; K44.9 Diaphragmatic hernia without obstruction or gangrene; Z79.899 Other long term (current) drug therapy; Z87.820 Personal history of traumatic brain injury; Z87.442 Personal history of urinary calculi; Z98.890 Other specified postprocedural states
CPT/HCPCS: 45385; 45380; 43239; 88305; 88313; 88342; J2003; J2250; J2704